=== PATIENT | female | born 1945 | race Two or more races ===

== ENCOUNTER 2022-06-02 14:55 | Inpatient (IN) | payer OTHER, MEDICARE ==
[~2022-06-02] VITALS: Ht 154.9 cm; Wt 54.4 kg
[~2022-06-02 14:55] MED LIST: ATEN50TA2 PO; GLYB1TAB2 PO; LISI10TA30 PO; ROSI4TAB PO
[2022-06-02 15:02] VITALS: BP 160/68
--- NOTE | 2022-06-02 15:02 | NUR ---
PATIENT BIBA TO BED 8.
--- NOTE | 2022-06-02 15:15 | NUR ---
77F BIBA from dialysis with c/o ALOC and rectal bleeding. Per EMS, pt was half way through dialysis tx when becoming altered, pt was nonverbal when EMS arrived to dialysis center. Pt AOx1 in ED, oriented to own name only, but verbal upon assessment. Pt restless and agitated, continuously trying to get out of bed. Dr. Trujillo made aware of pt status upon arrival. Pt changed into gown, placed on bedside monitor, side rails x2.
[2022-06-02] MEDS ORDERED: PANTOPRAZOLE 40 MG INJ VIAL IVP ONE (15:25)
[2022-06-02 15:58] LABS: BASOPHILS # (AUTO) 0.1 K/uL (0.00-0.22); BASOPHILS % (AUTO) 2.2 % (0.0-2.0); EOSINOPHILS # (AUTO) 0.1 K/uL (0-0.4); EOSINOPHILS % (AUTO) 1.5 % (0.0-4.0); HEMATOCRIT 30.7 % (36-48); HEMOGLOBIN 10.2 g/dL (12.0-16.0); LYMPHOCYTES # (AUTO) 0.8 K/uL (2.5-16.5); LYMPHOCYTES % (AUTO) 21.1 % (20.5-51.1); MEAN CORPUSCULAR HEMOGLOBIN 32 pg (27-31); MEAN CORPUSCULAR HGB CONC 33 g/dL (33-37); MEAN CORPUSCULAR VOLUME 96.6 fL (80-94); MONOCYTES # (AUTO) 0.4 K/uL (0.8-1.0); MONOCYTES % (AUTO) 10.3 % (1.7-9.3); NEUTROPHILS # (AUTO) 2.5 K/uL (1.8-7.7); NEUTROPHILS % (AUTO) 64.9 % (42.2-75.2); PLATELET COUNT (AUTO) 225 K/uL (140-450); RED BLOOD CELL COUNT(AUTO) 3.17 MIL/uL (4.20-5.40); RED CELL DISTRIBUTION WIDTH 16.3 % (11.6-13.7); WHITE BLOOD COUNT (AUTO) 3.9 K/uL (4.8-10.8)
[2022-06-02] MEDS ORDERED: HALOPERIDOL IM 5 MG/ML VIAL IM ONE (16:05)
[2022-06-02] MEDS ORDERED: HALOPERIDOL IM 5 MG/ML VIAL ONE (16:08)
--- NOTE | 2022-06-02 16:10 | NUR ---
Pt continues to be agitated, restless, and attempting to get out of bed. Dr. Trujillo made aware.
[2022-06-02 16:33] LABS: ANION GAP 13.6 (8-16); ASPARTATE AMINOTRANSFERASE 25 U/L (15-37); CARBON DIOXIDE 32.8 mmol/L (21-32); CHLORIDE 94 mmol/L (98-107); GLUCOSE 239 mg/dL (74-106); MAGNESIUM 2.8 mg/dL (1.8-2.4); POTASSIUM 3.4 mmol/L (3.5-5.1); SODIUM SERUM 137 mmol/L (136-145); TOTAL BILIRUBIN 0.7 mg/dL (0.0-1.0); UREA NITROGEN, BLOOD 41 mg/dL (7-18)
[2022-06-02 16:35] LABS: CREATININE 4.5 mg/dL (0.6-1.3)
[2022-06-02] MEDS ORDERED: LORazepam 2 MG/ML VIAL IVP ONE (16:40)
[2022-06-02] MEDS ORDERED: LORazepam 2 MG/ML VIAL ONE (16:41)
--- NOTE | 2022-06-02 17:14 | NUR ---
Pt brought back from CT via [facility].
--- NOTE | 2022-06-02 19:18 | NUR ---
Pt report given to SARANYA Torres. Transfer of care at this time.
--- NOTE | 2022-06-02 20:00 | NUR ---
RESTING IN BED WITH EYES CLOSED AND SNORING RESPIRATIONS.
[2022-06-02] MEDS ORDERED: ACETAMINOPHEN 325 MG TAB PO PRN (20:35)
[2022-06-02] MEDS ORDERED: HYDROcodone/APAP 5/325 MG 1 TAB TAB PO PRN (20:35)
[2022-06-02 20:48] LABS: BASOPHILS # (AUTO) 0.1 K/uL (0.00-0.22); BASOPHILS % (AUTO) 2.2 % (0.0-2.0); EOSINOPHILS # (AUTO) 0.1 K/uL (0-0.4); EOSINOPHILS % (AUTO) 1.4 % (0.0-4.0); HEMATOCRIT 30.6 % (36-48); HEMOGLOBIN 10.3 g/dL (12.0-16.0); LYMPHOCYTES # (AUTO) 1.1 K/uL (2.5-16.5); LYMPHOCYTES % (AUTO) 17.6 % (20.5-51.1); MEAN CORPUSCULAR HEMOGLOBIN 32 pg (27-31); MEAN CORPUSCULAR HGB CONC 34 g/dL (33-37); MEAN CORPUSCULAR VOLUME 95.8 fL (80-94); MONOCYTES # (AUTO) 0.8 K/uL (0.8-1.0); NEUTROPHILS # (AUTO) 4.2 K/uL (1.8-7.7); NEUTROPHILS % (AUTO) 65.8 % (42.2-75.2); PLATELET COUNT (AUTO) 224 K/uL (140-450); RED CELL DISTRIBUTION WIDTH 15.9 % (11.6-13.7); WHITE BLOOD COUNT (AUTO) 6.3 K/uL (4.8-10.8)
--- NOTE | 2022-06-03 | NUR ---
CONTINUES TO REST WITH EYES CLOSED, RESPIRATIONS REGULAR AND UNLABORED
--- NOTE | 2022-06-03 00:45 | NUR ---
REPOSITIONED, LINENS CHANGED. JENNY CARE GIVEN
[2022-06-03 06:30] LABS: BASOPHILS # (AUTO) 0.1 K/uL (0.00-0.22); BASOPHILS % (AUTO) 1.1 % (0.0-2.0); EOSINOPHILS % (AUTO) 0.5 % (0.0-4.0); HEMATOCRIT 29.4 % (36-48); LYMPHOCYTES # (AUTO) 1.4 K/uL (2.5-16.5); MEAN CORPUSCULAR HEMOGLOBIN 33 pg (27-31); MEAN CORPUSCULAR HGB CONC 34 g/dL (33-37); MEAN CORPUSCULAR VOLUME 95.8 fL (80-94); MONOCYTES % (AUTO) 14.7 % (1.7-9.3); NEUTROPHILS # (AUTO) 4.3 K/uL (1.8-7.7); NEUTROPHILS % (AUTO) 63.7 % (42.2-75.2); PLATELET COUNT (AUTO) 221 K/uL (140-450); RED BLOOD CELL COUNT(AUTO) 3.07 MIL/uL (4.20-5.40); RED CELL DISTRIBUTION WIDTH 16.3 % (11.6-13.7); WHITE BLOOD COUNT (AUTO) 6.8 K/uL (4.8-10.8)
[2022-06-03 06:56] LABS: ALBUMIN 2.6 g/dL (3.4-5.0); ANION GAP 15.2 (8-16); ASPARTATE AMINOTRANSFERASE 22 U/L (15-37); CARBON DIOXIDE 29.5 mmol/L (21-32); CHLORIDE 96 mmol/L (98-107); GLUCOSE 155 mg/dL (74-106); POTASSIUM 3.7 mmol/L (3.5-5.1); SODIUM SERUM 137 mmol/L (136-145); TOTAL BILIRUBIN 0.8 mg/dL (0.0-1.0); UREA NITROGEN, BLOOD 54 mg/dL (7-18)
[2022-06-03 07:13] LABS: CREATININE 5.5 mg/dL (0.6-1.3)
--- NOTE | 2022-06-03 07:23 | NUR ---
Report recieved from SARANYA Torres for transfer of care.
--- NOTE | 2022-06-03 07:24 | NUR ---
PT MOVED TO BED 6
[2022-06-03] MEDS: DOCUSATE SODIUM 100 MG GELCAP PO SCH (09:00)
--- NOTE | 2022-06-03 09:10 | NUR ---
Patient was turned and repositioned, made clean and dry.
--- NOTE | 2022-06-03 09:40 | NUR ---
Dr. Beckett at bedside, informed him of patient not being able to take medications.
--- NOTE | 2022-06-03 09:51 | NUR ---
Dr. Beckett, admitting doctor, admitting doctor, evaluating patient at bedside.
--- NOTE | 2022-06-03 12:10 | NUR ---
Dr. Dickens, washing machine installer evaluating patient at bedside.
--- NOTE | 2022-06-03 12:20 | NUR ---
Patient was turned and repositioned.
--- NOTE | 2022-06-03 13:49 | NUR ---
Lab at bedside.
--- NOTE | 2022-06-03 14:02 | NUR ---
DR NASH, NEUROLOGY AT BEDSIDE EVALUATING PT
--- NOTE | 2022-06-03 14:14 | NUR ---
Karlos Licona, called and Dr. Sprague talking to patients daughter.
[2022-06-03] MEDS ORDERED: PIPERACILLIN/TAZOBACTAM 2.25 GM VIAL IV ONE ×2 (14:17→22:21)
[2022-06-03] MEDS: PIPERACILLIN/TAZOBACTAM 2.25 GM in DEXTROSE 5% 50 ML IV SCH ×2 (14:36→22:45)
--- NOTE | 2022-06-03 14:46 | NUR ---
Per daughter Glenna, only she can give medical information about patient or answer questions.
--- NOTE | 2022-06-03 16:20 | NUR ---
Patient was turned and repositioned.
--- NOTE | 2022-06-03 18:22 | NUR ---
Called Dr. rebolledo to notify of patient not having any fluids or food. Left voicemail.
--- NOTE | 2022-06-03 18:43 | NUR ---
Patient was turned and repositioned. Noted with one loose bowel movement.
--- NOTE | 2022-06-03 18:47 | NUR ---
Received orders from Dr. Medina, contract agent, for IV D5W @25 cc/hour since patient is not eating and has no IV fluids ordered. Orders carried out.
[2022-06-03] MEDS: DEXTROSE 5% 1,000 ML IV SCH (18:50)
--- NOTE | 2022-06-03 19:20 | NUR ---
Report given to SARANYA Gonzales for transfer of care.
--- NOTE | 2022-06-03 20:06 | NUR ---
PAGED OUT FOR AMDITTING DOCTOR.
--- NOTE | 2022-06-03 20:15 | NUR ---
RECEIVED CALL BACK FROM DR. KO. UPDATED ON PATIENT CONDITION AND QUESTIONED MAINTENANCE FLUID ORDER. PER DISCONTINUE D5 FLUIDS AND WILL NOT NEED MAINTENANCE FLUIDS AT THIS TIME.
--- NOTE | 2022-06-03 20:52 | NUR ---
Patient will be admitted to care of Sophy SIMEON. Admited to Telemetry. Will go to room 114. Belongings list completed. Report to Alec BEAVER.
--- NOTE | 2022-06-03 21:17 | NUR ---
PT TO MST
[2022-06-03 21:20] VITALS: BP 165/50
--- NOTE | 2022-06-03 21:20 | NUR ---
RECEIVED REPORT FROM ER NURSE LOC FOR CONTINUITY OF CARE. PATIENT IS A&O X0, NON-VERBAL. PATIENT IS ON ROOM AIR, BREATHING IS NORMAL WITH SYMMETRICAL RISE AND FALL OF CHEST. PATIENT'S IV IS A 20G R HAND, NO FLUIDS RUNNING (SALINE LOCKED). PATIENT IS LYING SEMI-FOWLERS IN BED. BED IS IN LOWEST POSITION, WHEELS LOCKED, CALL LIGHT IN PLACE. WILL CONTINUE TO OBSERVE PATIENT.
[2022-06-04] VITALS: BP 169/55
--- NOTE | 2022-06-04 | NUR ---
STARTED PATIENT ON ZOSYN IVPB FOR 2100 MEDICATION. PATIENT CONTINUES TO BE NON-RESPONSIVE TO ANY QUESTIONS, JUST LYING IN BED. PATIENT DOES SELF-TURN. BREATHING IS NORMAL WITH SYMMETRICAL RISE AND FALL OF CHEST. WILL CONTINUE TO OBSERVE PATIENT.
[2022-06-04] MEDS ORDERED: hydrALAZINE 20 MG/ML VIAL IVP PRN (01:40)
[2022-06-04 04:00] VITALS: BP 163/58
--- NOTE | 2022-06-04 04:00 | NUR ---
NOTIFIED BINDER AND BOX BUILDER PHYSICIAN (DR. RICHARDSON) FOR PATIENT'S BLOOD PRESSURE OF 169/55. MD ORDERED HYDRALAZINE 20MG EVERY 6HR PRN FOR BP OVER 160. ADMINISTERED MEDICATION TO PATIENT. PATIENT STILL LYING IN BED, NON-RESPONSIVE TO QUESTIONS. LOOKED IN ON PATIENT TO RE-ASSESS BP; PATIENT HAD RIPPED OUT HER IV. PATIENT WAS CLEANED UP, NEW BEDDING AND GOWN WAS APPLIED TO PATIENT. FLOOR WAS CLEANED UP FROM BLOOD AND BED RAILING WAS CLEANED. PATIENT ALSO HAD VOIDED. PATIENT WAS CLEANED WITH THE ASSISTANCE OF SARANYA HARRINGTON. NEW IV WAS PLACED BY SARANYA HARRINGTON, 22G RFA. PATIENT IS LYING IN BED AND IS CALM, RESTING. WILL CONTINUE TO OBSERVE PATIENT.
[2022-06-04] MEDS ORDERED: PIPERACILLIN/TAZOBACTAM 2.25 GM VIAL IV ONE ×2 (04:26→20:47)
[2022-06-04] MEDS: PIPERACILLIN/TAZOBACTAM 2.25 GM in DEXTROSE 5% 50 ML IV SCH ×3 (04:39→22:00)
[2022-06-04 06:52] LABS: BASOPHILS # (AUTO) 0.1 K/uL (0.00-0.22); BASOPHILS % (AUTO) 0.9 % (0.0-2.0); EOSINOPHILS % (AUTO) 0.1 % (0.0-4.0); HEMOGLOBIN 10.5 g/dL (12.0-16.0); LYMPHOCYTES # (AUTO) 1.2 K/uL (2.5-16.5); LYMPHOCYTES % (AUTO) 14.2 % (20.5-51.1); MEAN CORPUSCULAR HEMOGLOBIN 33 pg (27-31); MEAN CORPUSCULAR HGB CONC 34 g/dL (33-37); MEAN CORPUSCULAR VOLUME 96.7 fL (80-94); MONOCYTES # (AUTO) 1.1 K/uL (0.8-1.0); MONOCYTES % (AUTO) 12.4 % (1.7-9.3); NEUTROPHILS # (AUTO) 6.2 K/uL (1.8-7.7); NEUTROPHILS % (AUTO) 72.4 % (42.2-75.2); PLATELET COUNT (AUTO) 243 K/uL (140-450); RED BLOOD CELL COUNT(AUTO) 3.21 MIL/uL (4.20-5.40); WHITE BLOOD COUNT (AUTO) 8.5 K/uL (4.8-10.8)
[2022-06-04 07:05] LABS: ALBUMIN 2.9 g/dL (3.4-5.0); ANION GAP 20.8 (8-16); ASPARTATE AMINOTRANSFERASE 26 U/L (15-37); CARBON DIOXIDE 26.5 mmol/L (21-32); CHLORIDE 95 mmol/L (98-107); GLUCOSE 207 mg/dL (74-106); MAGNESIUM 2.9 mg/dL (1.8-2.4); PHOSPHORUS 7.1 mg/dL (2.5-4.9); POTASSIUM 4.3 mmol/L (3.5-5.1); SODIUM SERUM 138 mmol/L (136-145); TOTAL BILIRUBIN 1.1 mg/dL (0.0-1.0)
[2022-06-04 07:15] LABS: UREA NITROGEN, BLOOD 70 mg/dL (7-18)
[2022-06-04 07:16] LABS: CREATININE 6.9 mg/dL (0.6-1.3)
--- NOTE | 2022-06-04 07:40 | NUR ---
RECEIVED CRITICAL LAB ON PATIENT. BUN 70, CR 6.9. NOTIFIED BUSINESS SERVICES OFFICER DR. DORMAN. DR DORMAN ASKED ABOUT POTASSIUM, POTASSIUM WAS 4.3. DR DORMAN, SAID THAT BUN ARE CR ARE FINE FOR DIALYSIS PATIENT, NO NEW ORDERS. WILL ENDORSE CARE TO DAY SHIFT NURSE.
--- NOTE | 2022-06-04 07:51 | NUR ---
ENDORSED CARE OF PATIENT TO DAY SHIFT NURSE ADZE FOR CONTINUITY OF CARE. PATIENT IS STABLE.
[2022-06-04 08:00] VITALS: BP 157/59
--- NOTE | 2022-06-04 08:53 | NUR ---
PATIENT HAS BEEN SCREENED AND CATEGORIZED MODERATE NUTRITION RISK. PATIENT WILL BE SEEN WITHIN 3-5 DAYS OF ADMISSION. 06/04/21-06/09/[address]
[2022-06-04] MEDS: DOCUSATE SODIUM 100 MG GELCAP PO SCH (09:00)
[2022-06-04 12:00] VITALS: BP 154/62
[2022-06-04 16:00] VITALS: BP 142/52
[2022-06-04] MEDS: DEXTROSE 5% 1,000 ML IV SCH ×2 (18:50→20:33)
--- NOTE | 2022-06-04 19:30 | NUR ---
RECEIVED REPORT FROM DAY SHIFT NURSE BRONWYN FOR CONTINUITY OF CARE. PATIENT IS A&O X0, NON-VERBAL. PATIENT IS ON ROOM AIR, BREATHING IS NORMAL WITH SYMMETRICAL RISE AND FALL OF CHEST. PATIENT'S IV IS A 22G RFA, RUNNING NS 20MEQ KCL. PATIENT IS LYING SUPINE IN BED. BED IS IN LOWEST POSITION, WHEELS LOCKED, CALL LIGHT IN PLACE. WILL CONTINUE TO OBSERVE PATIENT. Addendum: 06/04/22 at 2003 by Alec Purvis RN PATIENT IS RUNNING D5 25ML
[2022-06-04 20:00] VITALS: BP 175/61
[2022-06-05] VITALS: BP 163/64
--- NOTE | 2022-06-05 | NUR ---
PATIENT'S IV WAS NO LONGER PATENT. NEW IV WAS PLACED BY NURSE CARTWRIGHT. NEW IV IS A 22G RIGHT THUMB. 2100 MEDICATION WAS ADMINISTERED TO PATIENT. PATIENT WAS CLEANED BY NURSE CHAY AND MYSELF, PATIENT GIVEN NEW COVERS AND CHUCKS. PATIENT TOLERATED WELL. PULLED NEW BAG OF D5 FOR PATIENT AND SETUP SECONDARY IV PUMP. WILL CONTINUE TO OBSERVE PATIENT.
[2022-06-05 04:00] VITALS: BP 176/53
--- NOTE | 2022-06-05 04:00 | NUR ---
PATIENT HAD BM AND WAS CLEANED BY NURSE CHAY AND MYSELF. PATIENT TOLERATED WELL. IV FLUID IS RUNNING. BREATHING IS NORMAL WITH SYMMETRICAL RISE AND FALL OF CHEST. WILL CONTINUE TO OBSERVE PATIENT.
[2022-06-05] MEDS: PIPERACILLIN/TAZOBACTAM 2.25 GM in DEXTROSE 5% 50 ML IV SCH ×3 (04:16→21:04)
[2022-06-05 07:16] LABS: BASOPHILS # (AUTO) 0.1 K/uL (0.00-0.22); BASOPHILS % (AUTO) 1.3 % (0.0-2.0); EOSINOPHILS % (AUTO) 0.3 % (0.0-4.0); HEMATOCRIT 28.9 % (36-48); HEMOGLOBIN 9.8 g/dL (12.0-16.0); LYMPHOCYTES # (AUTO) 1.5 K/uL (2.5-16.5); LYMPHOCYTES % (AUTO) 17.5 % (20.5-51.1); MEAN CORPUSCULAR HEMOGLOBIN 32 pg (27-31); MEAN CORPUSCULAR HGB CONC 34 g/dL (33-37); MEAN CORPUSCULAR VOLUME 95.3 fL (80-94); MONOCYTES # (AUTO) 1.1 K/uL (0.8-1.0); MONOCYTES % (AUTO) 13.4 % (1.7-9.3); NEUTROPHILS # (AUTO) 5.7 K/uL (1.8-7.7); NEUTROPHILS % (AUTO) 67.5 % (42.2-75.2); PLATELET COUNT (AUTO) 237 K/uL (140-450); RED BLOOD CELL COUNT(AUTO) 3.03 MIL/uL (4.20-5.40); RED CELL DISTRIBUTION WIDTH 16.4 % (11.6-13.7); WHITE BLOOD COUNT (AUTO) 8.4 K/uL (4.8-10.8)
--- NOTE | 2022-06-05 07:30 | NUR ---
ENDORSED PATIENT TO DAY SHIFT NURSE ADZE FOR CONTINUITY OF CARE. PATIENT IS STABLE.
[2022-06-05 07:42] LABS: ALBUMIN 2.5 g/dL (3.4-5.0); ANION GAP 18.8 (8-16); ASPARTATE AMINOTRANSFERASE 41 U/L (15-37); CARBON DIOXIDE 27.5 mmol/L (21-32); CHLORIDE 98 mmol/L (98-107); GLUCOSE 105 mg/dL (74-106); MAGNESIUM 2.4 mg/dL (1.8-2.4); PHOSPHORUS 4.7 mg/dL (2.5-4.9); POTASSIUM 3.3 mmol/L (3.5-5.1); SODIUM SERUM 141 mmol/L (136-145); TOTAL BILIRUBIN 1.2 mg/dL (0.0-1.0); UREA NITROGEN, BLOOD 34 mg/dL (7-18)
[2022-06-05 07:46] LABS: CREATININE 4.4 mg/dL (0.6-1.3)
[2022-06-05 08:00] VITALS: BP 156/98
[2022-06-05] MEDS: DOCUSATE SODIUM 100 MG GELCAP PO SCH (09:00)
[2022-06-05 12:00] VITALS: BP 147/86
[2022-06-05] MEDS ORDERED: cloNIDine-TTS1 0.1 MG/24 HR 1 EA PATCH TD SCH (13:00)
[2022-06-05] MEDS ORDERED: POTASSIUM CHLORIDE 10 MEQ TABER PO PRN (13:55)
[2022-06-05] MEDS ORDERED: KCL 20 MEQ/WATER INJ PREMIX 200 ML IV PRN (14:00)
[2022-06-05 16:00] VITALS: BP 142/98
--- NOTE | 2022-06-05 19:21 | NUR ---
RECEIVED REPORT FROM DAY SHIFT RN FOR CONTINUITY OF CARE. PT IS SLEEPING WITH NO RESPIRATORY DISTRESS. PT IS ON RA. FAMILY BY BEDSIDE. PT HAS RIGHT WRIST 24 GAUGE SALINE LOCK. BED AT THE LOWEST POSITION. HEAD OF THE BED RAISED. WILL CONTINUE TO MONITOR THE PT.
[2022-06-05 20:00] VITALS: BP 157/40
--- NOTE | 2022-06-05 21:04 | NUR ---
SCHEDULE MEDICATION GIVEN. NO ADVERSE REACTION NOTED. WILL CONTINUE TO MONITOR THE PT.
[2022-06-06] VITALS: BP 156/40
--- NOTE | 2022-06-06 01:05 | NUR ---
PT WAS CLEANED AND CHANGED. PT TOLERATED WELL. PT IS BECOMING MORE ALERT AND IS ABLE TO SPEAK FEW WORDS AND NEEDS. PT SAID SHE IS COLD. WARM BLANKETS PROVIDED.
[2022-06-06 04:00] VITALS: BP 159/41
--- NOTE | 2022-06-06 04:00 | NUR ---
VITAL SIGNS. TAKEN AND STABLE. PT IS SAYING IT IS COLD. WARM BLANKET PROVIDED.
[2022-06-06] MEDS: PIPERACILLIN/TAZOBACTAM 2.25 GM in DEXTROSE 5% 50 ML IV SCH ×3 (04:20→21:35)
--- NOTE | 2022-06-06 07:20 | NUR ---
ENDORSED PT TO DAY SHIFT RN FOR CONTINUITY OF CARE. PT IS STABLE.
[2022-06-06 07:26] LABS: ALBUMIN 2.4 g/dL (3.4-5.0); ANION GAP 21.2 (8-16); ASPARTATE AMINOTRANSFERASE 52 U/L (15-37); BASOPHILS # (AUTO) 0.1 K/uL (0.00-0.22); CARBON DIOXIDE 26.2 mmol/L (21-32); CHLORIDE 99 mmol/L (98-107); EOSINOPHILS # (AUTO) 0.1 K/uL (0-0.4); EOSINOPHILS % (AUTO) 1.3 % (0.0-4.0); GLUCOSE 96 mg/dL (74-106); HEMOGLOBIN 9.4 g/dL (12.0-16.0); LYMPHOCYTES # (AUTO) 1.5 K/uL (2.5-16.5); LYMPHOCYTES % (AUTO) 22.8 % (20.5-51.1); MAGNESIUM 2.6 mg/dL (1.8-2.4); MEAN CORPUSCULAR HEMOGLOBIN 32 pg (27-31); MEAN CORPUSCULAR HGB CONC 34 g/dL (33-37); MEAN CORPUSCULAR VOLUME 96.1 fL (80-94); MONOCYTES % (AUTO) 15.1 % (1.7-9.3); NEUTROPHILS % (AUTO) 58.8 % (42.2-75.2); PHOSPHORUS 6.1 mg/dL (2.5-4.9); PLATELET COUNT (AUTO) 237 K/uL (140-450); POTASSIUM 3.4 mmol/L (3.5-5.1); RED BLOOD CELL COUNT(AUTO) 2.91 MIL/uL (4.20-5.40); RED CELL DISTRIBUTION WIDTH 15.9 % (11.6-13.7); SODIUM SERUM 143 mmol/L (136-145); TOTAL BILIRUBIN 1.3 mg/dL (0.0-1.0); UREA NITROGEN, BLOOD 49 mg/dL (7-18)
[2022-06-06 07:29] LABS: CREATININE 5.9 mg/dL (0.6-1.3)
[2022-06-06 08:00] VITALS: BP 171/45
[2022-06-06] MEDS: DOCUSATE SODIUM 100 MG GELCAP PO SCH (10:25)
[2022-06-06 12:00] VITALS: BP 138/50
--- NOTE | 2022-06-06 12:30 | NUR ---
DISCHARGE PLANNING PATIENT IS A 77 YEAR OLD FEMALE ADMITTED TO [facility] ON 06/04/2022 DUE TO TRANSIT ISCHEMIC ATTACK. SW MEET WITH PATIENT AND HER DAUGTHER THIEN BEYER AT BEDSIDE , TO DISCUSS AND GATHER HER COLLATERAL INFORMATION. PATIENT WAS AWAKE AND BUT UNABLE TO PROVIDE HER INFORMATION. THEREFORE; HER DAUGTHER PROVIDED FOR HER. PER PATIENT'S DAUGTHER SHE LIVES HOME WITH HER IN [place]. SHE ALSO HAS HER BROTHER AND OTHER FAMILY MEMBERS THAT ASSIST HER WITH PATIENT'S CARE AND HER NEEDS. PER PATIENT'S DAUGTHER SHE IS HER EMERGENCY CONTACT AND MEDICAL DECISIONS MAKER. PATIENT DO HAVE ADVANCE DIRECTIVES IN PLACE. AND PATIENT'S DAUGTHER DECLINED INF. FORMS PROVIDED BY SW. PER PATIENT'S DAUGTHER HER AND OTHER SIBLINGS AND FAMILY MEMBERS TAKE PATIENT TO HER PCP DR.DON GLYNN AND REPORTED THAT HER LAS VISIT WITH PCP WAS ABOUT 3 WEEKS AGO. PER PATIENT'S DAUGTHER. PCP HAS A GOOD GRASP OF PATIENTS CARE AND HELPS WITH WHAT HE CAN. HER APPOINTMENTS ARE USUALLY EVERY 3 MONTHS. SW DISCUSSED WITH PATIENT AND DAUGTHER OF THE IMPORTANCE OF MAKING AND APPOINTMENT FOR FOLLOW UP AND THEY DECLINED FOR SW TO MAKE IT. STATED THAT SHE WILL MAKE ONE IF THEY NEED ONE WHEN DISCHARGE HAPPENS. PER PATIENT'S DAUGTHER THIEN REPORTED THAT SHE IS WAITING ON HER BROTHER TO ARRIVE FROM [facility] TO MAKE IMPORTANT DECISIONS ABOUT POSSIBLE HOSPICE FOR PATIENT AND MAY BE STOPING DIALYSIS IF HOSPICE WILL BE THE DECISIONS THAT SHE AND HER BROTHER WILL AGREE FOR PATIENT. PER PATIENT'S DAUGTHER SHE WILL LIKE FOR PATIENT TO HAVE HOSPICE WITH A AND AT [facility]. BUT WILL HAVE TO MAKE DECISIONS ONCE HER BROTHER ARRIVES. SW DISCUSS ABOUT PATIENT'S CARE AT HOME AND PATIENT'S DAUGHTER STATED THAT SHE HAS NO ISSUES WITH MEDICATIONS ANDS THEY GET THEM FROM [facility] IN [place] [facility]. PATIENT'S DAUGTHER ALSO REPORTED THAT PATIENT HAS A HOSPITAL BED, A WALKER, AND A WHEELCHAIR AT HOME HER DME. SW THANKED PATIENT'S DAUGTHER FOR ALL THE INFORMATION PROVIDED AND ENDED THE VISIT. SW/CM WILL FOLLOW UP NEEDED. THEY HAVE ONE ALREADY FOR NEXT WEEK. WITH PCP VIRY WHITEHEAD. PATIENT STATED NOT HAVING ANY ISSUES GETTING OR TAKING HER MEDICATIONS AND REPORTED THAT SHE GETS HER MEDICATIONS FROM [facility] IN [place] IN [facility] PER PATIENT SHE HAS A WALKER AND A CANE HER ONLY DME AT HOME AND REPORTED WANTING TO GO BACK HOME WHEN SHE IS READY AND STABLE FOR DISCHARGE. PATIENT IS NOT OPEN FOR MD RECOMMENDATION TO SNF. SW THANKED PATIENT AND DAUGTHER FOR THE INFORMATION PROVIDED AND ENDED THE VISIT. SW/CM WILL FOLLOW UP NEEDED.
--- NOTE | 2022-06-06 15:20 | NUR ---
PT. WITH LOW BERHANE SCALE AT MODERATE TO HIGH RISK, CONTINUE TO FOLLOW PRESSURE INJURY PREVENTION INTERVENTIONS. -POSITIONING: TURN AND REPOSITION PATIENT Q 2H OR SOONER USE PILLOWS TO KEEP BONY PROMINENCES FROM DIRECT CONTACT WITH SURFACES USE REPOSITIONING WEDGES TO PROVIDE 30-DEGREE ANGLE FOR SIDE LYING POSITIONS OFFLOADING OR FOAM DRESSING TO ALL TUBING TO PREVENT MEDICAL DEVICES RELATED PRESSURE INJURY -RE-EVALUATING AND MANAGING INCONTINENCE MONITOR SKIN CONDITION DURING POSITION CHANGE DO NOT MASSAGE REDNESS, BONY PROMINENCES FREQUENT JENNY-CARE AND PROVIDE BARRIER CREAMS PRN IF SOILING MOISTURE CONTROL BY OFFER BED RINCON/URINAL /ABSORBENT PAD TO WICK AND HOLD MOISTURE KEEP SKIN DRY AND PROTECT FROM FRICTION -MANAGE FRICTION/SHEAR/MOBILITY KEEP HOB AT THE LOWEST LEVEL OF ELEVATION NO MORE THAN 30 DEGREE UNLESS OTHERWISE CONTRAINDICATED USE LIFT SHEET OR TRANSFER DEVICE TO MOVE PATIENT AND PREVENT LATERAL SHEER. PROTECT HEELS, ELBOWS BONY PROMINENCES WITH SKIN BERRIES OR FOAM DRESSING IF EXPOSED TO FRICTION OFFLOAD BILATERAL HEELS BY PLACING PILLOWS UNDER CALVES AT ALL TIMES, UNLESS OTHERWISE CONTRAINDICATED -PRESSURE REDISTRIBUTION SURFACE THERAPY RICCI ISOFLEX MATTRESS -NUTRITION: PLEASE FOLLOW RD RECOMMENDATIONS AND OFFER NUTRITION SUPPLEMENTS IF ORDERED. PLEASE CONTACT WOUND CARE NURSE FOR ANY QUESTION AND CHANGE OF WOUND CONDITION.
--- NOTE | 2022-06-06 15:50 | NUR ---
PHYSICAL THERAPY CO-SIGN The Physical Therapy Progress Notes documented by Tool And Die Manager have been reviewed. Reviewed/Co-Signed by: Mckenna Mistry Documentation Done by: ESME SWAN PTA Addendum: 06/06/22 at 1550 by Mckenna Mistry PT Amended: Links added.
[2022-06-06 16:00] VITALS: BP 160/55
--- NOTE | 2022-06-06 19:30 | NUR ---
RECEIVED PT FROM MORNING SHIFT NURSE. PT IS AOX3-4, BEDBOUND, ABLE TO VERBALIZE NEEDS AND ABLE TO FOLLOW COMMANDS. PT IS ON ROOM AIR WITH CCHO DIET. PT HAS IV ON RIGHT HAND AC GAUGE 22 RUNNING WITH D5W AT 25 ML/HR. PT SKIN IS INTACT. PT DENIES PAIN AT THIS TIME. NO S/S OF RESPIRATORY DISTRESS NOTED. ALL SAFETY MEASURES IMPLEMENTED. BED IN LOW POSITION, BED WHEELS ON LOCK AND CALL LIGHT WITHIN REACH.
[2022-06-06] MEDS: DEXTROSE 5% 1,000 ML IV SCH (19:35)
[2022-06-06 20:00] VITALS: BP 117/32
--- NOTE | 2022-06-06 21:35 | NUR ---
SCHEDULED AND PRESCRIBED MEDICATION WAS GIVEN TO PT PER MD ORDER. ALL SAFETY MEASURES IMPLEMENTED. BED IN LOW POSITION, BED WHEELS ON LOCK AND CALL LIGHT WITHIN REACH.
[2022-06-06 21:39] LABS: WHITE BLOOD COUNT (AUTO) 6.7 K/uL (4.8-10.8)
[2022-06-07] VITALS: BP 140/51
--- NOTE | 2022-06-07 | NUR ---
PT IS SLEEPING. CHEST RISE AND FALL SYMMETRICALLY NOTED. RESPIRATION IS EVEN AND UNLABORED. NO S/S OF RESPIRATORY DISTRESS NOTED. ALL SAFETY MEASURES IMPLEMENTED. BED IN LOW POSITION, BED WHEELS ON LOCK AND CALL LIGHT WITHIN REACH.
--- NOTE | 2022-06-07 02:00 | NUR ---
CHECKED THE PT STILL SLEEPING. CHEST RISE AND FALL SYMMETRICALLY NOTED. RESPIRATION IS EVEN AND UNLABORED. NO S/S OF RESPIRATORY DISTRESS NOTED. ALL SAFETY MEASURES IMPLEMENTED. BED IN LOW POSITION, BED WHEELS ON LOCK AND CALL LIGHT WITHIN REACH.
[2022-06-07 04:00] VITALS: BP 95/42
--- NOTE | 2022-06-07 04:00 | NUR ---
MORNING CARE WAS DONE TO PT. CHANGED CHUCKS, LINENS AND GOWN. PT DENIES PAIN AT THIS TIME. NO S/S OF RESPIRATORY DISTRESS NOTED. ALL SAFETY MEASURES IMPLEMENTED. BED IN LOW POSITION, BED WHEELS ON LOCK AND CALL LIGHT WITHIN REACH.
[2022-06-07] MEDS: PIPERACILLIN/TAZOBACTAM 2.25 GM in DEXTROSE 5% 50 ML IV SCH ×2 (05:21→13:04)
--- NOTE | 2022-06-07 05:21 | NUR ---
SCHEDULED AND PRESCRIBED MEDICATION WAS GIVEN TO PT PER MD ORDER. PT DENIES PAIN AT THIS TIME. NO S/S OF RESPIRATORY DISTRESS NOTED. ALL SAFETY MEASURES IMPLEMENTED. BED IN LOW POSITION, BED WHEELS ON LOCK AND CALL LIGHT WITHIN REACH.
--- NOTE | 2022-06-07 07:35 | NUR ---
PT IS STABLE. ENDORSED PT TO MORNING SHIFT NURSE FOR CONTINUITY OF CARE.
[2022-06-07 07:47] LABS: ALBUMIN 2.4 g/dL (3.4-5.0); ANION GAP 16.7 (8-16); ASPARTATE AMINOTRANSFERASE 48 U/L (15-37); CARBON DIOXIDE 25.7 mmol/L (21-32); CHLORIDE 98 mmol/L (98-107); GLUCOSE 131 mg/dL (74-106); MAGNESIUM 2.2 mg/dL (1.8-2.4); PHOSPHORUS 4.1 mg/dL (2.5-4.9); POTASSIUM 3.4 mmol/L (3.5-5.1); SODIUM SERUM 137 mmol/L (136-145); TOTAL BILIRUBIN 1.5 mg/dL (0.0-1.0); UREA NITROGEN, BLOOD 36 mg/dL (7-18)
[2022-06-07 08:00] VITALS: BP 163/48
[2022-06-07 08:03] LABS: CREATININE 4.1 mg/dL (0.6-1.3)
[2022-06-07 08:32] LABS: BASOPHILS # (AUTO) 0.1 K/uL (0.00-0.22); BASOPHILS % (AUTO) 1.7 % (0.0-2.0); EOSINOPHILS # (AUTO) 0.2 K/uL (0-0.4); EOSINOPHILS % (AUTO) 2.8 % (0.0-4.0); HEMATOCRIT 29.3 % (36-48); HEMOGLOBIN 9.9 g/dL (12.0-16.0); LYMPHOCYTES # (AUTO) 1.7 K/uL (2.5-16.5); LYMPHOCYTES % (AUTO) 27.5 % (20.5-51.1); MEAN CORPUSCULAR HEMOGLOBIN 33 pg (27-31); MEAN CORPUSCULAR HGB CONC 34 g/dL (33-37); MONOCYTES # (AUTO) 0.9 K/uL (0.8-1.0); MONOCYTES % (AUTO) 13.7 % (1.7-9.3); NEUTROPHILS # (AUTO) 3.4 K/uL (1.8-7.7); NEUTROPHILS % (AUTO) 54.3 % (42.2-75.2); PLATELET COUNT (AUTO) 234 K/uL (140-450); RED BLOOD CELL COUNT(AUTO) 3.02 MIL/uL (4.20-5.40); RED CELL DISTRIBUTION WIDTH 16.1 % (11.6-13.7); WHITE BLOOD COUNT (AUTO) 6.2 K/uL (4.8-10.8)
[2022-06-07] MEDS ORDERED: EPOETIN ALFA-EPBX 10,000 UNITS/ML VIAL SUBQ SCH (09:00)
[2022-06-07] MEDS: DOCUSATE SODIUM 100 MG GELCAP PO SCH (09:32)
[2022-06-07] MEDS ORDERED: SITA25TA3 PO (09:40)
[2022-06-07 12:00] VITALS: BP 166/52
[2022-06-07 13:21] VITALS: BP 166/52
--- NOTE | 2022-06-07 14:40 | NUR ---
DISCHARGE PATIENT HOME IN STABLE CONDITION PER PCP ORDER. DISCHARGE CONSENT SIGNED BY PATIENT, DISCHARGE INSTRUCTION GIVE TO PATIENT WITH 3 FAMILY MEMBER PRESENT. IV ACCESS, TEL MONITOR, AND WRIST BAND REMOVED.
== END 2022-06-07 14:30 | disposition home or self-care (01) | DRG 425 ==
LOC: MED 14:55 → MTU 20:38 → OBSVTOIN 06-04 15:27
PROVIDERS: ADMIT Hospitalist; ATTEND Hospitalist
PROC: 5A1D70Z Performance of Urinary Filtration, Intermittent, Less than 6 Hours Per Day (ICD-10-PCS; principal; 2022-06-04)
PROC: 5A1D70Z Performance of Urinary Filtration, Intermittent, Less than 6 Hours Per Day (ICD-10-PCS; 2022-06-06)
DX: E87.70 Fluid overload, unspecified (principal); G93.41 Metabolic encephalopathy; I50.33 Acute on chronic diastolic (congestive) heart failure; K76.82 Hepatic encephalopathy; E44.1 Mild protein-calorie malnutrition; I27.20 Pulmonary hypertension, unspecified; N18.6 End stage renal disease; E11.22 Type 2 diabetes mellitus with diabetic chronic kidney disease; I13.2 Hypertensive heart and chronic kidney disease with heart failure and with stage 5 chronic kidney disease, or end stage renal disease; I69.951 Hemiplegia and hemiparesis following unspecified cerebrovascular disease affecting right dominant side; E11.51 Type 2 diabetes mellitus with diabetic peripheral angiopathy without gangrene; F01.50 Vascular dementia, unspecified severity, without behavioral disturbance, psychotic disturbance, mood disturbance, and anxiety; K74.60 Unspecified cirrhosis of liver; E78.5 Hyperlipidemia, unspecified; Z95.5 Presence of coronary angioplasty implant and graft; Z20.822 Contact with and (suspected) exposure to COVID-19; Z90.721 Acquired absence of ovaries, unilateral; I25.10 Atherosclerotic heart disease of native coronary artery without angina pectoris; Z56.0 Unemployment, unspecified; Z98.41 Cataract extraction status, right eye; Z99.2 Dependence on renal dialysis; Z80.3 Family history of malignant neoplasm of breast; Z63.4 Disappearance and death of family member; Z80.49 Family history of malignant neoplasm of other genital organs; Z80.8 Family history of malignant neoplasm of other organs or systems; Z68.22 Body mass index [BMI] 22.0-22.9, adult
CPT/HCPCS: 96372; 96374; 96375; 99285; G0378; 36415; 70450; 71045; 71250; 80053; 82140; 83735; 83880; 84100; 84484; 85025; 86886; 86900; 86901; 87040; 87081; 93005; 97112; 97116; 97163-GP; 97530; C9113; J0360; J1630; J2060; J2543; J3480; J7060; J7120; Q0092; Q5106